=== PATIENT | male | born 1990 | race Caucasian/White ===

== ENCOUNTER 2020-08-29 15:13 | Emergency (ER) | payer BC ==
[~2020-08-29] VITALS: Ht 195.6 cm; Wt 86.4 kg
[~2020-08-29 15:13] MED LIST: PERCOCET 325 MG1 TA2 PO
[2020-08-29 15:27] VITALS: TEMP 97.9
[2020-08-29 16:48] LABS: ALANINE AMINOTRANSFERASE 32 U/L (4-49); ALBUMIN 5.4 gm/dL (3.5-5.0); ALKALINE PHOSPHATASE 52 U/L (50-136); ANION GAP 9 mmol/L (7-16); AST,SGOT 35 U/L (15-37); BILIRUBIN,TOTAL 1.5 mg/dL (0.0-1.0); BLOOD UREA NITROGEN 14 mg/dL (9-20); C-REACTIVE PROTEIN < 0.5 mg/dL (0.0-0.9); CALCIUM 9.9 mg/dL (8.4-10.2); CARBON DIOXIDE 26 mmol/L (22-30); CHLORIDE 107 mmol/L (98-107); CREATININE, serum 0.98 (0.66-1.25); GLUCOSE 74 mg/dL (74-106); LIPASE 61 U/L (23-300); POTASSIUM 4.1 mmol/L (3.4-5.0); SODIUM 142 mmol/L (137-145); TOTAL PROTEIN 8.7 gm/dL (6.4-8.2)
[2020-08-29 16:50] LABS: BASO % 0.3 % (0.0-2.0); EOS % 0.3 % (0-4.0); GRAN # 5.1 (1.4-6.5); GRAN % 73.7 % (42.2-75.2); LYMPH # 1.3 (1.2-3.4); LYMPH % 18.2 % (20.0-51.0); MEAN CELL VOLUME 91 fl (80.0-100.0); MEAN CORPUSCULAR HEMOGLOBIN 32 pg (27.0-31.0); MEAN CORPUSCULAR HGB CONC 35 g/dl (33.0-37.0); MEAN PLATELET VOLUME 9.6 fl (7.4-10.4); MONO # 0.5 (0.1-0.6); MONO % 7.2 % (1.7-9.3); PLATELET COUNT 187 K/mm3 (130-400); RED BLOOD COUNT 5.39 M/mm3 (4.20-5.60)
[2020-08-29 17:35] VITALS: BP 122/76; PULSE 76
== END 2020-08-29 17:35 | disposition home or self-care (01) ==
LOC: COL.ER 15:13
PROVIDERS: Nurse Practitioner
DX: R04.2 Hemoptysis (principal)